=== PATIENT | female | born 1955 | race American Indian/Alaskan Native ===

== ENCOUNTER 2018-06-06 16:26 | Emergency (ER) | payer OTHER ==
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
--- NOTE | 2018-06-06 18:19 | XRay Report ---
PROCEDURE: XR SPINE LUMBOSACRAL 2-3V TECHNIQUE: Lumbar spine 2 views HISTORY: pain COMPARISONS: FINDINGS: Vertebral bodies are normal in height There is grade 1 anterolisthesis of L4 relative to L5. Facet joint hypertrophy noted lower lumbar spi ne. There is disc space narrowing at L4-L5. Noted are multiple calcifications in the pelvis consistent with calcified uterine fibroids IMPRESSION: Grade 1 spondylolisthesis and degenerative disc disease L4-L5. This document is electronically signed by Cuate Guzman MD., June 06 2018 06:16:58 PM ET
--- NOTE | 2018-06-06 18:22 | XRay Report ---
PROCEDURE: XR SHOULDER 2+V RT TECHNIQUE: Right shoulder 3 views HISTORY: pain COMPARISONS: No prior studies available for comparison FINDINGS: No fracture identified. No dislocation seen. AC joint is intact. Adjacent bony and soft tissue struct ures are unremarkable. IMPRESSION: Negative shoulder series. This document is electronically signed by Cuate Guzman MD., June 06 2018 06:20:27 PM ET
[2018-06-06] MEDS ORDERED: TORADOL IM ONE (20:58)
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
[2018-06-06 21:39] VITALS: BP 178/105
== END 2018-06-06 21:51 | disposition home or self-care (01) ==
LOC: ED 16:26
DX: M54.5 Low back pain (principal); M25.511 Pain in right shoulder; V89.2XXA Person injured in unspecified motor-vehicle accident, traffic, initial encounter; Y93.89 Activity, other specified; Y92.488 Other paved roadways as the place of occurrence of the external cause; Y99.8 Other external cause status
CPT/HCPCS: 72100; 73030; 96372; 99283; J1885

== ENCOUNTER 2018-08-04 15:10 | Emergency (ER) | payer MEDICARE, OTHER ==
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
[2018-08-04 16:37] LABS: Basophils # (Auto) 0.1 K/mm3 (0.0-0.1); Eosinophils # (Auto) 0.1 K/mm3 (0.0-0.4); Eosinophils % (Auto) 1.7 % (0.0-4.3); Hematocrit 44.4 % (30.3-42.9); Hemoglobin 15.3 gm/dl (10.1-14.3); Lymphocytes # (Auto) 1.3 K/mm3 (1.2-5.4); Lymphocytes % (Auto) 22.8 % (13.4-35.0); Mean Corpuscular HGB Conc 34 % (30-34); Mean Corpuscular Volume 94 fl (79-97); Monocytes # (Auto) 0.4 K/mm3 (0.0-0.8); Monocytes % (Auto) 6.9 % (0.0-7.3); Platelet Count 231 K/mm3 (140-440); Red Blood Count 4.74 M/mm3 (3.65-5.03); Red Cell Distribution Width 13.7 % (13.2-15.2)
[2018-08-04 16:53] LABS: Alanine Aminotransferase 12 units/L (7-56); Albumin 3.7 g/dL (3.9-5); BUN/Creatinine Ratio 11; Blood Urea Nitrogen 8 mg/dL (7-17); Calcium 9.6 mg/dL (8.4-10.2); Hemolysis Index 2
--- NOTE | 2018-08-04 17:28 | Cat Scan Report ---
PROCEDURE: CT HEAD/BRAIN WO CON TECHNIQUE: Computerized tomography of the head was performed without contrast material. CT DOSE LENGTH PRODUCT: 805.4 mGycm HISTORY: unsteady gate COMPARISONS: None . FINDINGS: Skull and scalp: Normal . Paranasal sinuses: Normal . Ventricles and subarachnoid spaces: Normal . Cerebrum: No evidence of hemorrhage, acute infarction or mass . There is patchy and confluent white matter hypodensity. Cerebellum and brainstem: No evidence of hemorrhage, acute infarction or mass . IMPRESSION: Hypodensity within the centrum semiovale bilaterally and periventricular white matter. No nspecific finding which could reflect a number of etiologies including chronic white matter ischemic changes. If continued clinical concern suggest MRI for further evaluation. This document is electronically signed by Cuate Guzman MD., August 04 2018 05:26:05 PM ET
[2018-08-04] MEDS ORDERED: ANTIVERT PO ONE (17:35)
[2018-08-04] MEDS ORDERED: CATAPRES PO ONE (17:38)
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
[2018-08-04 19:19] VITALS: BP 146/72
== END 2018-08-04 19:24 | disposition home or self-care (01) ==
LOC: ED 15:10
DX: I16.0 Hypertensive urgency (principal); I10 Essential (primary) hypertension; R42 Dizziness and giddiness; Z79.899 Other long term (current) drug therapy
CPT/HCPCS: 36415; 70450; 80053; 84484; 85025